=== PATIENT | female | born 1970 | race Caucasian/White ===

== ENCOUNTER 2018-08-06 21:36 | Emergency (ER) | payer OTHER, MEDICAID ==
[~2018-08-06] VITALS: Ht 170.2 cm; Wt 56.0 kg
[2018-08-06] MEDS ORDERED: cyclobenzaprine 10mg tablet PO ONE (22:40)
[2018-08-06] MEDS ORDERED: ondansetron 4mg rapidly disintigrating tab PO ONE (22:40)
[2018-08-06] MEDS ORDERED: ketorolac tromethamine 15mg/ml inj. IM ONE (22:40)
[2018-08-06] MEDS ORDERED: CYCL-1 PO (23:20)
[2018-08-06] MEDS ORDERED: ONDA4TAB6 PO (23:20)
[2018-08-06 23:29] VITALS: BP 129/92
== END 2018-08-06 23:32 | disposition home or self-care (01) ==
LOC: ER 21:37
DX: G44.209 Tension-type headache, unspecified, not intractable (principal); M54.2 Cervicalgia; G89.29 Other chronic pain; F17.200 Nicotine dependence, unspecified, uncomplicated; F12.90 Cannabis use, unspecified, uncomplicated; Z79.899 Other long term (current) drug therapy
CPT/HCPCS: 96372; 99283; J1885

== ENCOUNTER 2018-12-23 18:10 | Emergency (ER) | payer MEDICAID, OTHER ==
[~2018-12-23] VITALS: Ht 170.2 cm; Wt 74.2 kg
[~2018-12-23 18:10] MED LIST: CYCL-1 PO; ONDA4TAB6 PO
[2018-12-23 18:15] VITALS: BP 129/82
== END 2018-12-23 19:27 | disposition left against medical advice (07) ==
LOC: ER 18:10
DX: G43.909 Migraine, unspecified, not intractable, without status migrainosus (principal); Z53.21 Procedure and treatment not carried out due to patient leaving prior to being seen by health care provider

== ENCOUNTER 2019-12-30 05:57 | Emergency (ER) | payer SELFPAY ==
[~2019-12-30] VITALS: Ht 170.2 cm; Wt 68.2 kg
[2019-12-30] MEDS ORDERED: normal saline 1000ml 1,000 ML IV ONE (06:10)
[2019-12-30] MEDS ORDERED: proCHLORperazine 10 MG/2 ml inj IV ONE (06:10)
[2019-12-30] MEDS ORDERED: ondansetron/PF 4mg/2ml inj IV ONE (06:10)
[2019-12-30] MEDS ORDERED: ketorolac trometh. 30mg/ml inj. IV ONE (06:15)
[2019-12-30] MEDS ORDERED: acetaminophen 325mg tablet PO ONE (06:15)
[2019-12-30] MEDS ORDERED: famotidine/PF 10 mg/ml inj IV ONE (06:15)
[2019-12-30] MEDS ORDERED: LORazepam 2 mg/ml vial IV ONE (06:40)
[2019-12-30 07:01] LABS: CLARITY,URINE CLOUDY (Clear); COLOR,URINE YELLOW (Yellow); GLUCOSE, URINE NEGATIVE (Neg); KETONES,URINE NEGATIVE (Neg); LEUKOCYTE ESTERASE ,URINE NEGATIVE (Neg); NITRITES, URINE POSITIVE (Neg); OCCULT BLOOD,URINE NEGATIVE (Neg); PH,URINE 6.5 (4.8-8.0); PROTEIN,URINE NEGATIVE (Neg); UROBILINOGEN,URINE 0.2 E.U/dL (0.2-1.0)
[2019-12-30 07:02] LABS: URINE HCG NEGATIVE (NEG)
[2019-12-30 07:05] LABS: UA COLLECTION TYPE CLN CATCH MIDSTREAM
[2019-12-30 07:06] LABS: BACTERIA,URINE 4+ /HPF (Neg); MUCUS STRANDS FEW /LPF (Neg); SQUAMOUS EPITHELIAL CELL,UR MODERATE /LPF (FEW)
[2019-12-30 07:07] LABS: RBC,URINE 0-2 /HPF (0-2); WBC,URINE 0-4 /HPF (0-4)
[2019-12-30] MEDS ORDERED: SUMAtriptan succ. 6 MG/0.5ml vial SQ ONE (08:15)
[2019-12-30] MEDS ORDERED: CefTRIAXone inj 1,000 MG in normal saline 50ml IV soln 50 ML IV ONE (08:15)
[2019-12-30] MEDS ORDERED: CefTRIAXone/D5W-Rocephin 1gm 50 ML IV ONE (08:19)
[2019-12-30] MEDS ORDERED: CEPH250T PO (08:58)
[2019-12-30] MEDS ORDERED: ONDA8TAB6 PO (08:59)
[2019-12-30 09:31] VITALS: BP 158/94
== END 2019-12-30 09:33 | disposition home or self-care (01) ==
LOC: ER 05:58
DX: N39.0 Urinary tract infection, site not specified (principal); K52.9 Noninfective gastroenteritis and colitis, unspecified; G43.909 Migraine, unspecified, not intractable, without status migrainosus; G89.29 Other chronic pain; F12.90 Cannabis use, unspecified, uncomplicated; Z79.899 Other long term (current) drug therapy
CPT/HCPCS: 81001; 81025; 87077; 87088; 87186; 93005; 96361; 96365; 96372; 96375; 99285; J0696; J0780; J1885; J2060; J2405; J3490; J7030; J3030

== ENCOUNTER 2020-01-02 12:29 | Emergency (ER) | payer SELFPAY ==
[~2020-01-02 12:29] MED LIST changes: +CEPH250T PO; +ONDA8TAB6 PO
== END 2020-01-02 13:39 | disposition left against medical advice (07) ==
LOC: ER 12:29
DX: R10.9 Unspecified abdominal pain (principal); Z53.21 Procedure and treatment not carried out due to patient leaving prior to being seen by health care provider

== ENCOUNTER 2020-01-14 14:27 | Emergency (ER) | payer SELFPAY ==
[~2020-01-14] VITALS: Ht 170.2 cm; Wt 68.2 kg
[~2020-01-14 14:27] MED LIST changes: -CEPH250T PO
[2020-01-14 15:25] LABS: BASOPHILS # (AUTO) 0.1 X10'3 (0-0.2); BASOPHILS % (AUTO) 1.2 % (0-1); EOSINOPHILS # (AUTO) 0.1 X10'3 (0-0.9); EOSINOPHILS % (AUTO) 0.7 % (0-6); HEMOGLOBIN 16.2 g/dl (12.0-16.0); LYMPHOCYTES # (AUTO) 2.1 X10'3 (1.1-4.8); LYMPHOCYTES % (AUTO) 24.3 % (21-51); MEAN CORPUSCULAR HEMOGLOBIN 30.9 PG (27.0-31.0); MEAN CORPUSCULAR HGB CONC 33.8 g/dL (33.0-36.5); MEAN CORPUSCULAR VOLUME 91.5 FL (78-98); MEAN PLATELET VOLUME 8.6 FL (7.4-10.4); MONOCYTES # (AUTO) 0.7 X10'3 (0-0.9); MONOCYTES % (AUTO) 7.9 % (2-12); NEUTROPHILS # (AUTO) 5.8 X10'3 (1.8-7.7); NEUTROPHILS % (AUTO) 65.9 % (42-75); PLATELET COUNT 284 X10'3 (140-440); RED BLOOD COUNT 5.25 X10'6 (4.20-5.60); WHITE BLOOD COUNT 8.8 X10'3 (4.5-11.0)
[2020-01-14 15:43] LABS: ALANINE AMINOTRANSFERASE 140 U/L (12-78); ALBUMIN 3.7 G/DL (3.4-5.0); ALKALINE PHOSPHATASE 135 IU/L (46-116); ANION GAP 11 (8-16); BILIRUBIN,TOTAL 0.9 MG/DL (0.1-1.0); BLOOD UREA NITROGEN 15 MG/DL (7-18); BUN/CREATININE RATIO 14.3 (6.6-38.0); CALCIUM 8.1 MG/DL (8.5-10.1); CHLORIDE 101 MMOL/L (99-107); CREATININE 1.05 MG/DL (0.40-0.90); GLUCOSE 122 MG/DL (70-104); LIPASE 108 U/L (73-393); SODIUM 138 MMOL/L (135-145); TOTAL CARBON DIOXIDE 26.4 MMOL/L (24-32); TOTAL PROTEIN 7.4 G/DL (6.4-8.2); eGFR 56 ML/MIN
[2020-01-14 15:44] LABS: POTASSIUM 3.9 MMOL/L (3.5-5.1)
[2020-01-14 15:49] LABS: CLARITY,URINE CLOUDY (Clear); COLOR,URINE YELLOW (Yellow); GLUCOSE, URINE NEGATIVE (Neg); KETONES,URINE NEGATIVE (Neg); LEUKOCYTE ESTERASE ,URINE NEGATIVE (Neg); NITRITES, URINE POSITIVE (Neg); OCCULT BLOOD,URINE TRACE-INTACT (Neg); PH,URINE 6.5 (4.8-8.0); PROTEIN,URINE NEGATIVE (Neg); UROBILINOGEN,URINE 0.2 E.U/dL (0.2-1.0)
[2020-01-14 15:50] LABS: UA COLLECTION TYPE CLN CATCH MIDSTREAM; URINE HCG NEGATIVE (NEG)
[2020-01-14 15:54] LABS: BACTERIA,URINE 4+ /HPF (Neg); RBC,URINE 0-2 /HPF (0-2); SQUAMOUS EPITHELIAL CELL,UR FEW /LPF (FEW)
[2020-01-14] MEDS ORDERED: ondansetron/PF 4mg/2ml inj IV ONE (16:05)
[2020-01-14] MEDS ORDERED: metoclopramide 5 mg/ml inj IV ONE (16:05)
[2020-01-14] MEDS ORDERED: levetiracetam-NS 1000mg/100ml 100 ML IV ONE (16:05)
[2020-01-14] MEDS ORDERED: normal saline 1000ml 1,000 ML IV ONE (16:05)
[2020-01-14] MEDS ORDERED: LORazepam 2 mg/ml vial IV ONE (16:05)
[2020-01-14] MEDS ORDERED: CefTRIAXone 2gm/D5W 50ml 50 ML IV ONE (16:10)
[2020-01-14 16:11] LABS: URINE AMPHETAMINE SCREEN NEGATIVE (Neg); URINE BARBITUATE SCREEN NEGATIVE (Neg); URINE BENZODIAZEPINES SCREEN NEGATIVE (Neg); URINE CANNABINOID SCREEN NEGATIVE (Neg); URINE COCAINE SCREEN NEGATIVE (Neg); URINE METHADONE SCREEN NEGATIVE (Neg); URINE OPIATE SCREEN NEGATIVE (Neg); URINE PHENCYCLIDINE SCREEN NEGATIVE (Neg)
[2020-01-14 16:29] LABS: ASPARTATE AMINO TRANSFERASE 126 U/L (10-37)
[2020-01-14 16:41] LABS: ETHANOL < 0.010 GM/DL (0.0-0.010)
[2020-01-14] MEDS ORDERED: ketorolac trometh. 30mg/ml inj. IV ONE (16:55)
[2020-01-14] MEDS ORDERED: chlordiazePOXIDE 25mg capsule PO ONE (16:55)
[2020-01-14] MEDS ORDERED: proCHLORperazine 10 MG/2 ml inj IV ONE (16:55)
[2020-01-14] MEDS ORDERED: CHLO25CA10 PO (16:57)
[2020-01-14] MEDS ORDERED: ONDA8TAB6 PO (16:57)
[2020-01-14 17:42] VITALS: BP 147/102
== END 2020-01-14 17:44 | disposition home or self-care (01) ==
LOC: ER 14:28
DX: N39.0 Urinary tract infection, site not specified (principal); R11.10 Vomiting, unspecified; F41.9 Anxiety disorder, unspecified; F10.10 Alcohol abuse, uncomplicated; G43.909 Migraine, unspecified, not intractable, without status migrainosus; G89.29 Other chronic pain; F12.90 Cannabis use, unspecified, uncomplicated; Z79.899 Other long term (current) drug therapy; Y90.0 Blood alcohol level of less than 20 mg/100 ml
CPT/HCPCS: 36415; 80053; 80305; 80320; 81001; 81025; 83690; 85025; 87077; 87088; 87186; 96365; 96375; 99284; J0696; J0780; J1885; J1953; J2060; J2405; J2765; J7030